=== PATIENT | male | born 1985 | race Caucasian/White ===

== ENCOUNTER 2024-05-22 14:50 | Emergency (ER) | payer OTHER ==
[2024-05-22] MEDS: Pantoprazole 40 MG Vial IVPUSH ONE (16:18)
[2024-05-22] MEDS: Sodium Chloride 0.9% 10 ML Syringe FLUSH PRN (16:18)
[2024-05-22] MEDS: HYDROmorphone 0.5 MG/0.5 ML Syringe IVPUSH ONE (16:19)
[2024-05-22 16:45] LABS: BASOPHILS ABSOLUTE AUTO 0.1 K/mm3 (0.0-0.2); BASOPHILS PERCENT AUTO 0.5 % (0.0-1.0); HEMATOCRIT 45.2 % (42.0-52.0); HEMOGLOBIN 16.5 gm/dl (14.0-18.0); IMMATURE GRAN ABSOLUTE AUTO 0.03 K/mm3 (0.00-0.05); IMMATURE GRAN PERCENT AUTO 0.3 % (0.0-0.4); LYMPHOCYTES ABSOLUTE AUTO 1.1 K/mm3 (1.0-4.8); LYMPHOCYTES PERCENT AUTO 10.7 % (24.0-44.0); MEAN CORPUSCULAR HGB CONC 36.5 g/dl (32.0-36.0); MEAN CORPUSCULAR VOLUME 87.8 fl (83.0-99.0); MEAN PLATELET VOLUME 11.3 fl (9.4-12.4); MONOCYTES ABSOLUTE AUTO 0.8 K/mm3 (0.0-0.8); MONOCYTES PERCENT AUTO 8.5 % (0.0-8.0); NEUTROPHILS ABSOLUTE AUTO 7.9 K/mm3 (1.8-7.7); PLATELET COUNT,PLT 226 K/mm3 (150-400); RED BLOOD CELL COUNT 5.15 M/mm3 (4.52-5.90); WHITE BLOOD CELL COUNT,WBC 9.87 K/mm3 (3.9-11.3)
[2024-05-22 17:07] LABS: ALBUMIN 3.7 g/dl (3.4-5.0); ANION GAP 14.6 (5-15); BUN/CREATININE RATIO 8.9 (14-18); CALCIUM 8.9 mg/dL (8.5-10.1); CREATININE 0.9 mg/dL (0.7-1.3); EST CRCL DRUG DOSING (CG) 101.41 mL/min; MAGNESIUM 1.6 mg/dL (1.8-2.4); POTASSIUM,K 3.6 mEq/L (3.5-5.1); PROTEIN TOTAL,TP 7.4 g/dl (6.4-8.2)
== END 2024-05-22 18:00 | disposition home or self-care (01) ==
LOC: JD.ED 14:50
DX: R07.89 Other chest pain (principal); F17.210 Nicotine dependence, cigarettes, uncomplicated
CPT/HCPCS: 36415; 71045; 80053; 83735; 84484; 85025; 85379; 93005; 96374; 96375; 99285; J1171; J2470